=== PATIENT | male | born 1940 | race Caucasian/White ===

== ENCOUNTER 2019-08-31 14:53 | Emergency (ER) | payer MEDICARE, OTHER ==
--- NOTE | 2019-08-31 15:28 | EDM.PDOC ---
ED HPI GENERAL MEDICAL PROBLEM - General Chief Complaint: Abdominal Pain Stated Complaint: HERNIA Time Seen by Provider: 08/31/19 15:20 History Limitations: Reports: No Limitations - History of Present Illness Location: Reports: Upper Extremity, Left Quality: Reports: Ache Severity: Moderate Improves with: Reports: None Worsens with: Reports: None Associated Symptoms: Reports: No Other Symptoms Hip/Groin Pain Score (Numeric/FACES): 4 - Related Data Allergies Allergy/AdvReac Type Severity Reaction Status Date / Time No Known Allergies Allergy Verified 08/31/19 15:18 Home Meds: Home Meds Albuterol Sulfate [Proventil Hfa] 2 inh INH QID 08/31/19 [History] Aspirin 81 mg PO DAILY 08/31/19 [History] Cholecalciferol (Vitamin D3) [Vitamin D3] 1,000 units PO DAILY 08/31/19 [History ] Cyanocobalamin (Vitamin B-12) [Vitamin B12] 2,500 mcg PO DAILY 08/31/19 [History ] Hydrochlorothiazide/Lisinopril [Lisinopril/HCTZ 10-12.5 MG] 1 tab PO DAILY 08/30 [History] Omeprazole Magnesium [Prilosec Otc] 20 mg PO DAILY 08/31/19 [History] Tamsulosin [Flomax] 0.4 mg PO BEDTIME 08/31/19 [History] atorvaSTATin [Lipitor] 80 mg PO DAILY 08/31/19 [History] hydroCHLOROthiazide [Hydrochlorothiazide] 25 mg PO DAILY 08/31/19 [History] levETIRAcetam [Keppra] 500 mg PO BID 08/31/19 [History] ED ROS GENERAL - Review of Systems Review Of Systems: See Below Constitutional: Reports: No Symptoms HEENT: Reports: No Symptoms Respiratory: Reports: No Symptoms Cardiovascular: Reports: No Symptoms Endocrine: Reports: No Symptoms GI/Abdominal: Reports: Abdominal Pain : Reports: No Symptoms Musculoskeletal: Reports: No Symptoms Skin: Reports: No Symptoms Neurological: Reports: No Symptoms Psychiatric: Reports: No Symptoms Hematologic/Lymphatic: Reports: No Symptoms Immunologic: Reports: No Symptoms ED EXAM, GI/ABD - Physical Exam Exam: See Below Exam Limited By: No Limitations General Appearance: Alert, WD/WN, No Apparent Distress Eyes: Bilateral: Normal Appearance, Abnormal EOM Ears: Normal External Exam, Normal Canal, Hearing Grossly Normal, Normal TMs Nose: Normal Inspection, Normal Mucosa Throat/Mouth: Normal Inspection, Normal Lips, Normal Oropharynx, Normal Voice Head: Atraumatic, Normocephalic Neck: Normal Inspection Respiratory/Chest: No Respiratory Distress, Lungs Clear, Normal Breath Sounds, No Accessory Muscle Use, Chest Non-Tender Cardiovascular: Normal Peripheral Pulses GI/Abdominal Exam: Normal Bowel Sounds, Soft, Non-Tender Course - Vital Signs Text/Narrative:: CT scan shows a small right fat-containing inguinal hernia. No signs of strangulation's. Last Recorded V/S: Last Vital Signs Temp 96.9 F 08/31/19 15:18 Pulse 59 L 08/31/19 15:18 Resp 17 08/31/19 15:18 BP 150/84 H 08/31/19 15:18 Pulse Ox 96 08/31/19 15:18 - Orders/Labs/Meds Labs: Laboratory Tests 08/31/19 08/31/19 Range/Units 15:40 15:40 WBC 6.00 (4.0-11.0) K/uL RBC 4.60 (4.50-5.90) M/uL Hgb 13.8 (13.0-17.0) g/dL Hct 42.6 (38.0-50.0) % MCV 92.6 (80.0-98.0) fL MCH 30.0 (27.0-32.0) pg MCHC 32.4 (31.0-37.0) g/dL RDW Std Deviation 46.2 (28.0-62.0) fl RDW Coeff of Kaushik 14 (11.0-15.0) % Plt Count 176 (150-400) K/uL MPV 9.10 (7.40-12.00) fL Neut % (Auto) 62.8 (48.0-80.0) % Lymph % (Auto) 17.5 (16.0-40.0) % Navarro % (Auto) 11.2 (0.0-15.0) % Eos % (Auto) 8.0 H (0.0-7.0) % Baso % (Auto) 0.5 (0.0-1.5) % Neut # (Auto) 3.8 (1.4-5.7) K/uL Lymph # (Auto) 1.1 (0.6-2.4) K/uL Navarro # (Auto) 0.7 (0.0-0.8) K/uL Eos # (Auto) 0.5 (0.0-0.7) K/uL Baso # (Auto) 0.0 (0.0-0.1) K/uL Nucleated RBC % 0.0 /100WBC Nucleated RBCs # 0 K/uL Sodium 140 (136-148) mmol/L Potassium 4.1 (3.5-5.1) mmol/L Chloride 102 (98-107) mmol/L Carbon Dioxide 32.7 H (21.0-32.0) mmol/L BUN 14 (7.0-18.0) mg/dL Creatinine 1.0 (0.8-1.3) mg/dL Est Cr Clr Drug Dosing 64.84 mL/min Estimated GFR (MDRD) > 60.0 ml/min Glucose 103 (74-106) mg/dL Calcium 9.5 (8.5-10.1) mg/dL Total Bilirubin 0.6 (0.2-1.0) mg/dL AST 19 (15-37) IU/L ALT 21 (14-63) IU/L Alkaline Phosphatase 97 (46-116) U/L Total Protein 7.6 (6.4-8.2) g/dL Albumin 4.1 (3.4-5.0) g/dL Globulin 3.5 (2.6-4.0) g/dL Albumin/Globulin Ratio 1.2 (0.9-1.6) Meds: Medications Discontinued Medications Generic Name Dose Route Start Last Admin Trade Name Freq PRN Reason Stop Dose Admin Iopamidol 100 ml 08/31/19 16:58 08/31/19 16:59 Isovue Multipack-370 (76%) IVPUSH 08/31/19 16:59 100 ml ONETIME ONE Administration Departure - Departure Time of Disposition: 17:33 Disposition: Home, Self-Care 01 Clinical Impression: Inguinal hernia of right side without obstruction or gangrene - Discharge Information Instructions: Hernia, Adult, [id number] Referrals: PCP,Not In Area [Primary Care Provider] - Forms: ED Department Discharge Sepsis Event Note - Focused Exam Vital Signs: Vital Signs Temp Pulse Resp BP Pulse Ox 08/31/19 15:18 96.9 F 59 L 17 150/84 H 96 Date Exam was Performed: 08/31/19 Time Exam was Performed: 17:31
[2019-08-31 16:34] LABS: BLOOD UREA NITROGEN,BUN 14 mg/dL (7.0-18.0); CARBON DIOXIDE,CO2 32.7 mmol/L (21.0-32.0); CHLORIDE,CL 102 mmol/L (98-107); GLUCOSE RANDOM 103 mg/dL (74-106); POTASSIUM,K 4.1 mmol/L (3.5-5.1); SODIUM,NA 140 mmol/L (136-148)
[2019-08-31] MEDS ORDERED: Iopamidol 755 MG/ML 500 ML Multipack Bottle IVPUSH ONE (16:58)
--- NOTE | 2019-08-31 17:19 | CT ---
CT abdomen and pelvis Technique: Multiple axial sections were obtained from above the dome of the diaphragm inferiorly through the pubic symphysis. Intravenous contrast was utilized. No oral contrast has been given. Findings: Mild pleural calcifications are seen within the right lung base. No acute finding is seen within either lung base. Liver contains no focal abnormality. Spleen appears within normal limits. Gallbladder is somewhat distended and contains a small calcified gallstone. Adrenal glands show no nodule. Pancreas shows no discrete abnormality. Kidneys show symmetric contrast enhancement without hydronephrosis or mass. Aorta shows atherosclerotic calcification which continues into the iliac vessels. No aneurysm is seen. No retroperitoneal adenopathy or mesenteric abnormalities are seen. Small fat-containing right inguinal hernia is noted. No free fluid or inflammatory change is noted. Diverticuli are seen within the sigmoid colon and within portions of the descending colon. Appendix is not visualized with certainty. Bone window settings were reviewed which shows scattered degenerative change within the spine. No acute osseous finding is appreciated. Impression: 1. Gallbladder somewhat dilated and contains a small calcified gallstone. 2. Small fat-containing right inguinal hernia. 3. Numerous sigmoid diverticuli as well as lesser diverticuli within the descending colon. No inflammatory change of diverticulitis is seen. Diagnostic code #3 This report was dictated in [facility]T
[2019-08-31] MEDS ORDERED: Diazepam 5 MG Tab PO ONE (17:34)
[2019-08-31] MEDS ORDERED: Ketorolac 30 MG/ML SDV IVPUSH ONE (17:34)
== END 2019-08-31 18:07 | disposition home or self-care (01) ==
LOC: MW.ED 14:53
DX: K40.90 Unilateral inguinal hernia, without obstruction or gangrene, not specified as recurrent (principal); Z79.82 Long term (current) use of aspirin; Z79.899 Other long term (current) drug therapy
CPT/HCPCS: 36415; 74177; 80053; 85025; 96374; 99284; A9270; J1885; Q9967; 99283